=== PATIENT | female | born 1940 | race Asian ===

== ENCOUNTER 2018-07-09 15:57 | Emergency (ER) | payer OTHER ==
[~2018-07-09] VITALS: Ht 160 cm; Wt 67.6 kg
[2018-07-09 15:57] VITALS: BP 157/60; TEMP 97.9
[2018-07-09 17:03] LABS: POTASSIUM 4.6 mmol/L (3.6-5.2); SODIUM 136 mmol/L (136-145)
[2018-07-09 17:11] LABS: PLATELET COUNT 149 K/uL (152-353)
[2018-07-10] MEDS ORDERED: AMLODIPINE BESYLATE PO (03:13)
[2018-07-10] MEDS ORDERED: BENZ1TAB43 PO (03:14)
[2018-07-10] MEDS ORDERED: B-12 COMPL1000 MCG/M INJ (03:19)
[2018-07-10] MEDS ORDERED: HALO50IN4 IM (03:21)
[2018-07-10] MEDS ORDERED: JANUVIA100 MG PO (03:22)
[2018-07-10] MEDS ORDERED: LANTUS INJ (03:25)
[2018-07-10] MEDS ORDERED: MULTI VITAMIN1 TAB PO (03:26)
[2018-07-10] MEDS ORDERED: [UNRECOGNIZED DRUG - OTHER] PO (03:31)
== END 2018-07-09 18:05 | disposition other institution (70) ==
LOC: ED 15:57
PROVIDERS: Emergency Medicine
DX: Z00.8 Encounter for other general examination (principal); F91.8 Other conduct disorders; E86.0 Dehydration; E11.9 Type 2 diabetes mellitus without complications
CPT/HCPCS: 36415; 80053; 82550; 82553; 84484; 85027; 93005; 99285

== ENCOUNTER 2018-07-11 01:51 | Observation (INO) | payer OTHER ==
[~2018-07-11] VITALS: Ht 160 cm; Wt 67.6 kg
[2018-07-11] VITALS (21 sets, daily range): BP systolic 82–1103; BP diastolic 40–90; TEMP 97.1–98; Ht 160 cm; Wt 67.6 kg
[~2018-07-11 01:51] MED LIST: AMLODIPINE BESYLATE PO; B-12 COMPL1000 MCG/M INJ; BENZ1TAB43 PO; HALO50IN4 IM; JANUVIA100 MG PO; LANTUS INJ; MULTI VITAMIN1 TAB PO; [UNRECOGNIZED DRUG - OTHER] PO
[2018-07-11 08:09] LABS: POTASSIUM 3.8 mmol/L (3.6-5.2)
[2018-07-12] VITALS (8 sets, daily range): BP systolic 97–151; BP diastolic 53–654; TEMP 97.8
[2018-07-12 05:17] LABS: PLATELET COUNT 138 K/uL (152-353)
[2018-07-12 05:57] LABS: POTASSIUM 4.5 mmol/L (3.6-5.2)
== END 2018-07-12 08:30 | disposition other institution (70) ==
LOC: ICU 01:51
PROVIDERS: Family Medicine; ADMIT Emergency Medicine
DX: E11.00 Type 2 diabetes mellitus with hyperosmolarity without nonketotic hyperglycemic-hyperosmolar coma (NKHHC) (principal); E87.1 Hypo-osmolality and hyponatremia
CPT/HCPCS: 80053; 81000; 85027; 99220; G0378; G0379; J0515; J1815; J3490; J7060